=== PATIENT | female | born 1935 | race Caucasian/White ===

== ENCOUNTER 2019-09-30 16:46 | Inpatient (IN) | payer OTHER, MEDICAID ==
[~2019-09-30] VITALS: Ht 152.4 cm; Wt 44.9 kg
[2019-09-30 16:50] VITALS: BP_SYST 164
[2019-09-30] MEDS ORDERED: SUCCINYLCHOLINE CHLORIDE 20 MG/ML(QUELICIN) IVP ONE (17:15)
[2019-09-30] MEDS ORDERED: ETOMIDATE 20 MG/ 10 ML VIAL (AMIDATE) IVP ONE (17:15)
--- NOTE | 2019-09-30 17:15 | NUR ---
PATIENT TO ER #5 ISOLATION; FARMWORKER POULTRY, SAO2, ABP; IV #22 LAC FROM FACILITY D5NS 75HR; INFILTRATED AND DCED; NEW START RIGHT WRIST #24
--- NOTE | 2019-09-30 17:20 | NUR ---
ERMD EVALUATION; PREPARATIONS TO INTUBATE
--- NOTE | 2019-09-30 17:25 | NUR ---
PATIENT PRESENTS TO THE ER WITH HX OF INCREASED DYSPNEA AND DECREASED SAO2 TODAY; NO TRAUMA, NO OTHER REMARKABLE S/S
--- NOTE | 2019-09-30 17:30 | NUR ---
Pt to be intubated attempt to be given 20 ml of etomidate infiltrated. New IV started on R Wrist 24 guage. 10 mL of etomidate succesful on new IV. Followed by Succinylcholine. Rapid intubation successful.
--- NOTE | 2019-09-30 17:40 | NUR ---
RT NOTES RT NOTES Pt was intubated with 6.5 ETT secured at 23cm lipline, condensation noted on ETT and CO2 detector changed to yellow for placement. Bilateral chest rise noted. Placed pt on vent AC 14 400 100%+5. Ok by Dr Del Rosario. Sputum collected and endorsed to lab.
--- NOTE | 2019-09-30 17:43 | NUR ---
peformed central line placement, successful on Yesica haynes.
--- NOTE | 2019-09-30 18:29 | NUR ---
EKG performed at by SANDRA Tam. Physician given copy of EKG for review.
[2019-09-30] MEDS ORDERED: NACL 0.9% 1,000 ML IV ONE (18:30)
[2019-09-30] MEDS ORDERED: PIPERACILLIN/TAZO 3.375 GM in NS 50 ML IV ONE (19:15)
[2019-09-30 19:31] LABS: HEMATOCRIT 30.4 % (36-48); HEMOGLOBIN 10.1 g/dL (12.0-16.0); MEAN CORPUSCULAR HEMOGLOBIN 34 pg (27-31); MEAN CORPUSCULAR HGB CONC 33 % (32-36); MEAN CORPUSCULAR VOLUME 104 fL (79.0-98.0); PLATELET COUNT (AUTO) 120 K/uL (130-430); RED BLOOD CELL COUNT(AUTO) 2.93 MIL/uL (4.2-6.2); RED CELL DISTRIBUTION WIDTH 15.6 % (9.0-15.0); WHITE BLOOD COUNT (AUTO) 2.6 K/uL (4.8-10.8)
--- NOTE | 2019-09-30 19:48 | NUR ---
Pt's high line Triple lumen ok to use by Dr. Maher verbal ordered as confirmed by crop nutrition scientist
[2019-09-30] MEDS ORDERED: VANCOMYCIN HCL 1,000 MG in NS 250 ML IV ONE (20:00)
[2019-09-30] MEDS ORDERED: NS 500 ML IV ONE (20:00)
[2019-09-30 20:02] LABS: INR 1.5 (0.8-1.2); PROTHROMBIN TIME 15.4 SECS (9.5-12.5)
[2019-09-30] MEDS ORDERED: PIPERACILLIN/TAZOBACTAM 3.375 GM/VIAL (ZOSYN) IV ONE ×2 (20:05→23:51)
--- NOTE | 2019-09-30 20:07 | NUR ---
Pt remains in guarded condition with Vent settings unchanged, SBP above 90, and MAP of above 65
[2019-09-30] MEDS ORDERED: VANCOMYCIN HCL 1000 MG/VIAL IV ONE (20:12)
[2019-09-30 20:19] LABS: ANION GAP 12 (5-15); CALCIUM 8.2 mg/dL (8.4-11.0); CREATININE 1.51 mg/dL (0.55-1.30); GLUCOSE 102 mg/dL (70-99); POTASSIUM 3.5 mmol/L (3.5-5.1); SODIUM SERUM 158 mmol/L (136-145); UREA NITROGEN, BLOOD 28 mg/dL (8-21)
[2019-09-30 20:26] LABS: CHLORIDE 126 mmol/L (98-107)
[2019-09-30 20:30] LABS: ALANINE AMINOTRANSFERASE 21 U/L (12-78); ALBUMIN 1.6 g/dL (3.4-4.8); ASPARTATE AMINOTRANSFERASE 36 U/L (10-37); LACTATE DEHYDROGENASE 324 U/L (81-234); TOTAL BILIRUBIN 1.6 mg/dL (0.0-1.0)
[2019-09-30] MEDS ORDERED: KCL 20 mEq in D5/0.45NS 1000mL 1,000 ML IV ONE (20:45)
[2019-09-30 20:47] LABS: ATYPICAL LYMPHOCYTES % 0 % (0-0); BAND % (MANUAL) 72 % (0-6); BASOPHILS % (MANUAL) 0 % (0-2); EOSINOPHILS % (MANUAL) 0 % (0-7); LYMPHOCYTES % (MANUAL) 17 % (20-46); METAMYELOCYTES % 6 % (0-0); MONOCYTES % (MANUAL) 1 % (0-11); MYELOCYTES % 2 % (0-0)
[2019-09-30 21:08] LABS: C-REACTIVE PROTEIN QUANT 22.6 mg/dL (0-0.5)
--- NOTE | 2019-09-30 21:17 | NUR ---
DR OCHOA ADM ORDERED TO ICU, 2ND LACTIC DRAWN
[2019-09-30] MEDS: LevALBUTEROL HCL 1.25 MG/0.5 ML *CONC.* VIAL.NEB (XOPENEX CONC.) INH SCH (22:00)
[2019-09-30] MEDS ORDERED: LevALBUTEROL HCL 1.25 MG/0.5 ML *CONC.* VIAL.NEB (XOPENEX CONC.) INH PRN (22:00)
[2019-09-30] MEDS ORDERED: CLOP75TA32 PO (22:06)
[2019-09-30] MEDS ORDERED: LACT-47 PO (22:07)
[2019-09-30] MEDS ORDERED: FERR-69 PO (22:08)
[2019-09-30] MEDS ORDERED: MEGE40TA PO (22:08)
[2019-09-30] MEDS ORDERED: LACT10SO7 PO (22:08)
[2019-09-30] MEDS ORDERED: MEMA10TA PO (22:09)
[2019-09-30] MEDS ORDERED: TRAM50TA2 PO (22:10)
--- NOTE | 2019-09-30 22:15 | NUR ---
VSS REMAINS ON SAME VENT SETTINGS, SCANT URINE VIA CABRALES, DR. OCHOA ARRIVED BEDSIDE FOR PT EVAL
[2019-09-30] MEDS ORDERED: ACETAMINOPHEN 650 MG SUPP.RECT RC PRN (22:30)
[2019-09-30 23:00] VITALS: BP_SYST 94
--- NOTE | 2019-09-30 23:20 | NUR ---
Patient will be admitted to care of DR. OCHOA. Admitted to ICU unit. Will go to room ICU 4. Belongings list completed. Complete and up to date summary report printed. SBAR report to be given at bedside with opportunity for questions.
--- NOTE | 2019-09-30 23:20 | NUR ---
Transfer to ICU via ACLS protocol. Licensed nurse present. IV present no signs or symptoms of infiltration.
[2019-09-30 23:21] VITALS: BP_SYST 127
[2019-09-30 23:51] VITALS: BP_SYST 105
[2019-10-01] VITALS (30 sets, daily range): BP systolic 86–137
[2019-10-01] MEDS: PANTOPRAZOLE SODIUM 40 MG/VIAL (PROTONIX) IVP SCH ×2 (01:15→08:29)
[2019-10-01] MEDS: PIPERACILLIN/TAZO 3.375/DEX-IS 50 ML IV SCH ×4 (01:19→17:14)
[2019-10-01] MEDS ORDERED: PANTOPRAZOLE SODIUM 40 MG/VIAL (PROTONIX) ONE (01:32)
[2019-10-01] MEDS: LevALBUTEROL HCL 1.25 MG/0.5 ML *CONC.* VIAL.NEB (XOPENEX CONC.) INH SCH ×2 (02:25→07:00)
--- NOTE | 2019-10-01 05:22 | NUR ---
CONSULT DR. BASURTO SEPSIS [phone] SPOKE WITH NATANAEL
[2019-10-01 06:00] LABS: BASOPHILS % (AUTO) 0.1 % (0.0-2.0); EOSINOPHILS # (AUTO) 0.1 K/uL (0.0-0.4); EOSINOPHILS % (AUTO) 2.2 % (0.0-4.0); HEMATOCRIT 25.7 % (36-48); HEMOGLOBIN 8.4 g/dL (12.0-16.0); LYMPHOCYTES # (AUTO) 0.5 K/uL (1.0-5.5); LYMPHOCYTES % (AUTO) 13.4 % (20.5-51.5); MEAN CORPUSCULAR HEMOGLOBIN 34 pg (27-31); MEAN CORPUSCULAR HGB CONC 33 % (32-36); MEAN CORPUSCULAR VOLUME 104 fL (79.0-98.0); MONOCYTES # (AUTO) 0.1 K/uL (0.0-1.0); MONOCYTES % (AUTO) 2.6 % (1.7-9.3); NEUTROPHILS % (AUTO) 81.7 % (40.0-70.0); PLATELET COUNT (AUTO) 79 K/uL (130-430); RED BLOOD CELL COUNT(AUTO) 2.47 MIL/uL (4.2-6.2); RED CELL DISTRIBUTION WIDTH 16.1 % (9.0-15.0); WHITE BLOOD COUNT (AUTO) 3.6 K/uL (4.8-10.8)
--- NOTE | 2019-10-01 07:30 | NUR ---
Opening Note Received plan of care via sbar from endorsing nurse Max FLORES. Completed patient round.
--- NOTE | 2019-10-01 07:32 | NUR ---
RT NOTES 0732 BEFORE DOING 7AM ROUNDS/BREATHING TX/ABG, DR ORDONEZ AT BEDSIDE, MADE VENT SETTINGS CHANGES SWITCHED TO PC 20, RR14, (TARGET VT400), PEEP 5, 100% FIO2. (IF IN DISTRESS SWITCH BACK TO AC14, 400VT). SHE ORDER TO DELAY ABG AFTER 1HOUR. PT MAGDA VENT SET CHANGES. ALSO, GAVE RT VERBAL ORDER: DISCONTINUED HHN BX TX, AND DO MDI Q6 VENTOLIN INSTEAD. TITRATION ORDER 88-90% SATURATION. SANDRA FLORENTINO AWARE. WILL CONTINUE TO MONITOR PT. WILL REMIND RN/ TO MAKE WRITTEN ORDER FOR THE VENT CHANGES MADE. 0850 DID ABG, REPORTED RESULTS TO SANDRA FLORENTINO. WILL WAIT FOR ANY CHANGES. WILL CONTINUE TO MONITOR PT.
[2019-10-01 08:23] LABS: POTASSIUM 3.5 mmol/L (3.5-5.1); SODIUM SERUM 156 mmol/L (136-145)
[2019-10-01 08:24] LABS: CHLORIDE 127 mmol/L (98-107)
--- NOTE | 2019-10-01 08:30 | NUR ---
Received call from Lab and received report for Chloride of 127. Dr. Fransisco Dozier.
--- NOTE | 2019-10-01 08:42 | NUR ---
Received call from Dr. Moody and reported chloride of 127. Also reported unstable BP of 72/32. Clarified D5 1/2NS 20 MEQ K. Received orders for Levophed 4mg IV Drip and D5 1/2 NS 20 MEQ K IV 100cc/hr.
[2019-10-01 08:54] LABS: ANION GAP 9 (5-15); CALCIUM 7.6 mg/dL (8.4-11.0); GLUCOSE 140 mg/dL (70-99)
[2019-10-01 08:55] LABS: CREATININE 1.69 mg/dL (0.55-1.30); UREA NITROGEN, BLOOD 34 mg/dL (8-21)
[2019-10-01] MEDS ORDERED: KCL 20 mEq in D5/0.45NS 1000mL 1,000 ML IV SCH (09:00)
[2019-10-01] MEDS ORDERED: NACL 0.9% 1,000 ML IV SCH (09:00)
--- NOTE | 2019-10-01 09:08 | NUR ---
Nutrition Update David Scale 11 noted. Pt admitted for acute respiratory failure/PNA Diet: Jevity 1.5 at 10ml/hr, 50cc free water flush Q4h BMI: 19.4 kg/m2 RD to follow per nutrition care standards.
--- NOTE | 2019-10-01 09:42 | NUR ---
Received call back from Dr. Mcgowan. Reported ABG including PH, CO2, Bicarb, tHB, BE. Received orders to push 1 AMP Bicarb IVP once. Also was asked about BP, reported bp of 86/36 and was given orders to start levophed but not to exceed 4 mcg/min
[2019-10-01] MEDS: NOREPINEPHRINE BITARTRATE 4 MG in D5W 246 ML IV PRN (10:15)
[2019-10-01] MEDS ORDERED: SODIUM BICARBONATE 8.4% JECT 50 MEQ/50 ML SYRINGE IVP ONE (10:15)
[2019-10-01] MEDS ORDERED: SODIUM BICARBONATE 8.4% JECT 50 MEQ/50 ML SYRINGE ONE (10:23)
--- NOTE | 2019-10-01 12:00 | NUR ---
Dr. Moody at bedside. Provided update on BP and informed MD that patient is on 2 mcg/min Levophed. Received orders to completed Covid PCR test. Patient PCR test completed. Patient tolerated without complaint or complication. Specimen sent to lab.
[2019-10-01] MEDS: FAMOTIDINE PF 20 MG/2 ML VIAL IVP SCH (12:40)
--- NOTE | 2019-10-01 12:42 | NUR ---
Called Dr. Esparza with a consult, spoke with photocomposing machine operator
--- NOTE | 2019-10-01 12:55 | NUR ---
RT NOTES 1255 10/01/19 XRAY RESULTS REQ'D PULL BACK ETT 3CM, RT ADJUSTED ETT WITH SANDRA FLORENTINO AT BEDSIDE. ETT CURRENTLY PLACED AT 20CM LIP LINE. SATURATION 96%. NO DISTRESS NOTED, BILATERAL BREATH SOUNDS NOTED. WILL CONTINUE TO MONITOR PT.
[2019-10-01] MEDS ORDERED: GENTAMICIN 100 mg/50 mL NS 50 ML IV ONE (13:00)
[2019-10-01] MEDS: ALBUTEROL MDI INHALATION 8 GM INH INH SCH ×2 (13:13→20:00)
[2019-10-01 13:40] LABS: BILIRUBIN,URINE 1+ (NEGATIVE); BLOOD, URINE 1+ (NEGATIVE); CLARITY/URINE CLOUDY (CLEAR); COLOR,URINE YELLOW (YELLOW); GLUCOSE,URINE NEGATIVE (NEGATIVE); KETONES,URINE TRACE (NEGATIVE); LEUKOCYTE ESTERASE ,URINE NEGATIVE (NEGATIVE); NITRITE, URINE NEGATIVE (NEGATIVE); PROTEIN URINE 1+ (NEGATIVE)
[2019-10-01 13:50] LABS: BACTERIA,URINE FEW /HPF (None Seen); FINE GRANULAR CASTS,URINE 0-10 /LPF (None Seen); HYALINE CASTS, URINE 0-10 /LPF (None Seen); RBC,URINE 0-3 /HPF (0-3); WBC,URINE 0-3 /HPF (0-3)
[2019-10-01] MEDS: BALSAM PERU/CASTOR OIL 60 GM OINT...G. TP SCH (17:07)
[2019-10-01] MEDS: POTASSIUM CHLORIDE 30 MEQ in D5W 1,000 ML IV SCH (17:14)
--- NOTE | 2019-10-01 17:20 | NUR ---
RT NOTES 1720 pt saturating 100%, tried titrating FIO2 to 90%, pt tolerating well, now saturation at 95%, no resp distress noted. arielle mitchell notified, will continue to monitor pt.
--- NOTE | 2019-10-01 19:37 | NUR ---
Closing Note Provided plan of care via sbar to receiving SANDRA Palma. Completed patient round.
--- NOTE | 2019-10-01 20:00 | NUR ---
PATIENT WAS ACCEPTED AND ASSESS DONE THE PATIENT WAS ON VENT BREATHING 30-40 SETTING TV 400 FIO2 90% PS 22 PEEP 5 , PATIENT WAS ANXIOUS MOVING LEG NO RESTRAINT AT THIS TIME ORDER TO START DIPRIVAN DRIP , COLOR PALE , WAS ON LEVOPHED DRIP NOW OFF BP STABLE TUBE FEEDING MAINTAIN AT 30ML/HR,TOLERATE WELL, EYES CLOSED LETHARGIC TEMP LOW 96.8 2200 DIPRIVAN DRIP WAS START AT 5MCG, RASS -2 WAS MOVING LOWER LEG AT THIS , LEVOPHED DRIP IS OFF, CONTINUED TO BREATH IN THE 40, OCCASIONAL BREATHING IN 18-22 AND THE PATIENT WAS RELAXED , THIS WOULD LAST FOR 20 MIN , THEN BREATHING WOULD INCREASED
[2019-10-01] MEDS ORDERED: PROPOFOL DRIP 100 ML IV PRN (20:15)
[2019-10-01] MEDS ORDERED: ENOXAPARIN SODIUM 30 MG/0.3 ML SYRINGE SUBCUT SCH (21:00)
[2019-10-02] VITALS (36 sets, daily range): BP systolic 81–119
[2019-10-02] MEDS: PIPERACILLIN/TAZO 3.375/DEX-IS 50 ML IV SCH ×5 (00:30→23:05)
[2019-10-02] MEDS: POTASSIUM CHLORIDE 30 MEQ in D5W 1,000 ML IV SCH ×2 (01:27→06:18)
--- NOTE | 2019-10-02 02:30 | NUR ---
LEVOPHED DRIP WAS START, BP 77/52, WILL TITRATE AND DIPRIVAN DRIP WOULD ALSO INCREASED TO BE RELATED WITH LEVOPHED 0230 DIPRIVAN DRIP DOWN TO 6MCG 0300LEVOPHED DRIP INCREASED TO2 MCG AND DIPRIVAN INCREASED TO 7 MCG THE PATIENT IS MORE QUITE AND RELAX WILL LEAVE AT THIS RATE AND MONITOR THE PATIENT 0330 AM CARE WAS DONE HAD AN LARGE BM OF SOFT BROWN STOOL ,NO SKIN BREAK DOWN WAS NOTICE RESP. THPT. WAS MAKING CHANGES ON THE VENT ,VENT SETTING NOW IS A/C 14,TV 400, FIO2 70% PEEP 5 , PATIENT CONTINUED TO BREATH FASTER , STABLE 0530 NO CHANGES WITH PATIENT IS MORE RELAX, THE BREATHING THE SAME , WILL CONTINUED WITH PLAN OF CARE, STABLE
[2019-10-02 05:54] LABS: HEMOGLOBIN 7.6 g/dL (12.0-16.0); MEAN CORPUSCULAR HEMOGLOBIN 34 pg (27-31); MEAN CORPUSCULAR HGB CONC 33 % (32-36); MEAN CORPUSCULAR VOLUME 102 fL (79.0-98.0); RED BLOOD CELL COUNT(AUTO) 2.22 MIL/uL (4.2-6.2); WHITE BLOOD COUNT (AUTO) 13.1 K/uL (4.8-10.8)
[2019-10-02 05:58] LABS: HEMATOCRIT 22.8 % (36-48); RED CELL DISTRIBUTION WIDTH 15.8 % (9.0-15.0)
[2019-10-02 06:01] LABS: PLATELET COUNT (AUTO) 49 K/uL (130-430)
[2019-10-02 06:48] LABS: ANION GAP 11 (5-15); CREATININE 1.83 mg/dL (0.55-1.30); GLUCOSE 200 mg/dL (70-99); POTASSIUM 4.1 mmol/L (3.5-5.1); SODIUM SERUM 146 mmol/L (136-145); UREA NITROGEN, BLOOD 41 mg/dL (8-21)
[2019-10-02 06:52] LABS: CHLORIDE 120 mmol/L (98-107)
[2019-10-02 07:15] LABS: TOTAL IRON BIND. CAPACITY 45 ug/dL (250-450)
--- NOTE | 2019-10-02 07:20 | NUR ---
Dr. Mcgowan at bedside. Orders received to titrate diprivan off and start morphine and versed drip. Contacted Pharmacy for protocol. Received request to place communication order and pharmacy will place order.
[2019-10-02] MEDS: ALBUTEROL MDI INHALATION 8 GM INH INH SCH ×3 (07:21→20:20)
--- NOTE | 2019-10-02 07:30 | NUR ---
Opening Note Received plan of care via sbar from endorsing nurse Minerva FLORES. Completed patient round.
[2019-10-02 07:40] LABS: BAND % (MANUAL) 26 % (0-6); BASOPHILS % (MANUAL) 0 % (0-2); EOSINOPHILS % (MANUAL) 1 % (0-7); LYMPHOCYTES % (MANUAL) 10 % (20-46); METAMYELOCYTES % 2 % (0-0); MONOCYTES % (MANUAL) 3 % (0-11)
[2019-10-02] MEDS ORDERED: COMMUNICATION ORDER XX ONE (07:45)
--- NOTE | 2019-10-02 08:05 | NUR ---
Paged Dr. Mantilla paged, awaiting call back
--- NOTE | 2019-10-02 08:09 | NUR ---
Called Dr. Esparza called, spoke to Mita with the exchange
--- NOTE | 2019-10-02 08:10 | NUR ---
Dr. Mcgowan provided order for NS 1 L IV bolus over 2 hours and chest x ray to confirm E.T. tube placement.
[2019-10-02] MEDS ORDERED: NACL 0.9% 1,000 ML IV SCH (08:15)
--- NOTE | 2019-10-02 08:20 | NUR ---
Called Dr. Espazra and provide sodium and potassium and urine output of 400cc last 24 hours. Also reported PH and Bicarb from ABG. Received orders to change fluid to 1 L D5W 2 amp bicarbs at 100 cc IV and 20 mg Lasix IVP once.
[2019-10-02] MEDS ORDERED: NACL 0.9% 1,000 ML IV ONE (08:30)
[2019-10-02] MEDS ORDERED: FUROSEMIDE 20 MG/2 ML VIAL IVP ONE ×2 (08:30→12:45)
[2019-10-02] MEDS: BALSAM PERU/CASTOR OIL 60 GM OINT...G. TP SCH (09:35)
[2019-10-02] MEDS: SODIUM BICARBONATE 8.4% JECT 100 MEQ in D5W 1,000 ML IV SCH ×2 (10:00→20:22)
--- NOTE | 2019-10-02 10:00 | NUR ---
Witnessed Witnessed Alfredo RN taper Propofol to 5 mcg/kg/min.
--- NOTE | 2019-10-02 10:00 | NUR ---
Witnessed Witnessed Alfredo FLORES start Morphine @ 2mg/hr.
--- NOTE | 2019-10-02 10:00 | NUR ---
Witnessed Witnessed Alfredo FLORES start Versed @ 2mg/hr.
--- NOTE | 2019-10-02 10:20 | NUR ---
CONSULTATION PAGED/CALLED Reason for Consultation: Low Plts & H/H Person Who was Notified: Gene Consulting Physician: Dr. Minor Millinery Worker Specialty: Hemotology Ordering Physician: Dr. Mantilla
--- NOTE | 2019-10-02 10:30 | NUR ---
Witnessed Witnessed Alfredo FLORES turn Propofol off.
--- NOTE | 2019-10-02 11:10 | NUR ---
Paged Dr. Eduardo to discuss sepsis risk.
[2019-10-02] MEDS: MIDAZOLAM HCL IV PRN (11:13)
[2019-10-02] MEDS: NS IV PRN (11:13)
[2019-10-02] MEDS: MORPHINE I.V. DRIP 100 ML IV PRN (11:15)
--- NOTE | 2019-10-02 12:35 | NUR ---
WOUND EVALUATION: Wound Consult received from Dr. Mantilla. Thank you Dr. Mantilla for the consult. Patient received in a [place] Bed with an Isoflex DMITRY mattress with low air loss therapy, awake, nonverbal, nonresponsive to verbal commands. Patient is unable to turn in bed independently. David Score is a 13. Past Medical History: Dementia. Per admitting physician's assessment: Aspiration Pneumonia, Acute Respiratory Failure, Sepsis, Dehydration, Acute Kidney Injury, Anemia, Severe Malnutrition. Recent Labs: WBC 13.1, RBC 2.22, hemoglobin 7.6, hematocrit 22.8, platelets 49, sodium 146, chloride 120, BUN 41, creatinine 1.83, glucose 200, albumin 1.6, calcium 7.0, BNP 181, PT 15.4, INR 1.5, PTT 38.8. Microbiology: Blood culture results x2 in progress. MRSA screen results negative. Endotracheal sputum culture results in progress. Intrinsic factors that delay wound healing: Aspiration Pneumonia, Acute Respiratory Failure, Sepsis, Dehydration, Acute Kidney Injury, Anemia, Severe Malnutrition, Hypoalbuminemia, Hyperglycemia. Extrinsic factors that delay wound healing: Immobility. Wound Assessment: 1. Left Sacral area: Reopened scar tissue from a wound of unknown etiology, present on admission. Wound bed has 90% black scab, 10% red tissue. No odor, no drainage. Periwound intact. Surrounding tissue has dark discolored tissue and scar tissue. Wound measures 0.9 cm x 0.7 cm. Recommend: Cleanse wound with normal saline. Apply moisture barrier cream to yeison-wound. Apply Venelex ointment to wound bed. Cover with foam dressing. Perform wound care daily, and as needed for dressing soiling or dislodgement. Also recommend: Reposition patient [id number] only every hour with pillow support and off-load pressure areas with pillows for pressure re-distribution. Offload, elevate and float bilateral heels with one pillow lengthwise under each extremity at all times. Perform skin care and monitor skin integrity Q shift. Use moisture barrier cream on buttocks and other moisture susceptible areas QID and as needed for soiling. Maintain patient on a low air-loss mattress.
[2019-10-02] MEDS: FAMOTIDINE PF 20 MG/2 ML VIAL IVP SCH (13:00)
--- NOTE | 2019-10-02 13:00 | NUR ---
Witnessed Witnessed Alfredo RN titrate Morphine to 4mg/hr.
--- NOTE | 2019-10-02 13:00 | NUR ---
Dr. Moody at bedside. MD will place new orders.
[2019-10-02] MEDS ORDERED: SOD FERRIC GLUC COMPLEX/SUC 125 MG in NS 100 ML IV SCH (14:00)
--- NOTE | 2019-10-02 15:00 | NUR ---
Witnessed Witnessed Alfredo RN titrate Midazolam to 4mg/hr.
[2019-10-02] MEDS ORDERED: PHYTONADIONE 10 MG in NS 50 ML IV ONE (17:30)
--- NOTE | 2019-10-02 17:32 | NUR ---
Dietitian Recommendations * Recommend continue current TF regimen, Current TF regimen (Jevity 1.5 at 40 ml/hr) provides 1440 kcal and 61 g protein, and 730 ml H2O, meeting 100% of estimated caloric and protein needs. * Consider TF Glucerna 1.5 at 35 ml/hr when pt's BG is out of control. TF Glucerna at 35 ml/hr will provide 1440 kcal and 69 g protein, and 638 ml H2O, meeting 100% of estimated caloric and protein needs. Please see Nutrition Assessment for details. EP,RD
--- NOTE | 2019-10-02 18:30 | NUR ---
Called Dr. Mcgowan and received guidance for Morphine and Versed. Up to 10 MG/hr on Morphine and 8mg/hr on versed.
[2019-10-02] MEDS ORDERED: HYDROCORTISONE SOD SUCC 100 MG/2 ML VIAL IVP ONE (19:00)
--- NOTE | 2019-10-02 19:25 | NUR ---
Closing Note Provided plan of care to receiving nurse Kel RN.
--- NOTE | 2019-10-02 19:25 | NUR ---
Closing Note Provided plan of care to receiving nurse Kel RN.
[2019-10-02] MEDS ORDERED: VANCOMYCIN HCL 750 MG in NS 250 ML IV SCH (20:00)
--- NOTE | 2019-10-02 20:00 | NUR ---
LETHARGIC. ORALLY INTUBATED. SUCTIONED WITH SCANT AMOUNT OF THIN YELLOW MUCUS OBTAINED. ORAL CARE GIVE. OGT FEEDING WITH JEVITY 1.5 AT 40CC/HR. ON MORPHINE DRIP AT 8 MG/HR, VERSED DRIP AT 6 MG/HR, LEVOPHED DRIP AT 8 MCG/MIN.
[2019-10-02] MEDS ORDERED: PHYTONADIONE 10 MG/ML AMP ONE (20:25)
--- NOTE | 2019-10-02 22:00 | NUR ---
HS CARE. CABRALES CATH PATENT DRAINING CLOUDY CECE URINE TO GRAVITY.
[2019-10-03] VITALS (30 sets, daily range): BP systolic 82–143
--- NOTE | 2019-10-03 | NUR ---
SUCTIONED. TURNED. RESIDUAL CHECK 0. OGT FLUSHED WITH 50CC H2O.
[2019-10-03] MEDS: NOREPINEPHRINE BITARTRATE 4 MG in D5W 246 ML IV PRN ×2 (02:19→22:20)
--- NOTE | 2019-10-03 03:10 | NUR ---
BP 86/41, LEVOPHED DRIP INCREASED TO 10 MCG/MIN.
--- NOTE | 2019-10-03 04:00 | NUR ---
SUCTIONED. TURNED RESIDUAL CHECK 0. OGT FLUSHED WITH 50CC H2O.
[2019-10-03] MEDS: NS IV PRN (04:54)
[2019-10-03] MEDS: MIDAZOLAM HCL IV PRN (04:54)
--- NOTE | 2019-10-03 05:00 | NUR ---
1 SMEAR OF STOOL DEFECATED. CLEANED. KELLEY-CARE, SKIN CARE, BACK CARE, CABRALES CARE DONE. PARTIAL LINEN CHANGE. DOES NOT ASSIST WITH TURNING. MAGDA PROC WELL. LEVOPHED INCREASED TO 12 MCG/MIN.
[2019-10-03] MEDS: PIPERACILLIN/TAZO 3.375/DEX-IS 50 ML IV SCH ×3 (05:52→18:45)
[2019-10-03 05:59] LABS: HEMATOCRIT 27.7 % (36-48); MEAN CORPUSCULAR HEMOGLOBIN 34 pg (27-31); MEAN CORPUSCULAR HGB CONC 33 % (32-36); MEAN CORPUSCULAR VOLUME 104 fL (79.0-98.0); RED BLOOD CELL COUNT(AUTO) 2.68 MIL/uL (4.2-6.2); RED CELL DISTRIBUTION WIDTH 16.7 % (9.0-15.0); WHITE BLOOD COUNT (AUTO) 20.3 K/uL (4.8-10.8)
[2019-10-03 06:00] LABS: INR 1.7 (0.8-1.2); PROTHROMBIN TIME 17.3 SECS (9.5-12.5)
[2019-10-03] MEDS ORDERED: HYDROCORTISONE SOD SUCC 100 MG/2 ML VIAL IVP SCH (06:00)
--- NOTE | 2019-10-03 06:00 | NUR ---
UO GOOD. LEVO AT 12 MCG/MIN, MORPHINE AT 8 MG/HR, VERSED AT 6 MG/HR. REMAINS IN GUARDED CONDITION.
[2019-10-03 06:12] LABS: ANION GAP 2 (5-15); CHLORIDE 112 mmol/L (98-107); CREATININE 1.75 mg/dL (0.55-1.30); GLUCOSE 266 mg/dL (70-99); POTASSIUM 4.2 mmol/L (3.5-5.1); SODIUM SERUM 139 mmol/L (136-145); TOTAL BILIRUBIN 1.6 mg/dL (0.0-1.0)
[2019-10-03 06:47] LABS: PLATELET COUNT (AUTO) 29 K/uL (130-430)
[2019-10-03 07:24] LABS: ALANINE AMINOTRANSFERASE 21 U/L (12-78); ASPARTATE AMINOTRANSFERASE 38 U/L (10-37); UREA NITROGEN, BLOOD 40 mg/dL (8-21)
--- NOTE | 2019-10-03 07:30 | NUR ---
Received report and assumed care of patient. Pt on vent and comfortable on AC 14/300/50%/p5. Pt sedated with morphine drip and Versed drips. Levophed drip at [address]/SR on monitor. HOB up slightly. OGt with jevity infusing at 4o and tolerating. Tirado with small amount of yellow urine in bag. Right TLC IJ with all IV's infusing there. Pt has a foam dressing to sacral area. Pt has a dressing to left 2nd toe and wrapped with kerlix. Feet up off bed on tarun. Heels with no redness. Will continue to monitor pt.
[2019-10-03] MEDS: ALBUTEROL MDI INHALATION 8 GM INH INH SCH ×2 (07:32→18:00)
[2019-10-03 07:40] LABS: CALCIUM 6.9 mg/dL (8.4-11.0)
--- NOTE | 2019-10-03 08:10 | NUR ---
Dr. Mcgowan in to see pt. Vent changes made to AC 18 and 340 VT. Will continue to monitor. Levophed increased to 14 mcgs.
--- NOTE | 2019-10-03 08:10 | NUR ---
RT NOTE: 0808 Pt placed on AC rate of 18 and Vt of [address] Mcgowan's verbal order. RN aware. Will keep monitoring pt. Addendum: 10/03/19 at 0954 by Alicia Lowry RT Amended: Links added.
[2019-10-03] MEDS ORDERED: NOREPINEPHRINE 4 MG/4 ML VIAL IV ONE ×3 (08:19→22:30)
[2019-10-03] MEDS: MORPHINE I.V. DRIP 100 ML IV PRN (08:30)
--- NOTE | 2019-10-03 09:25 | NUR ---
Spoke with pts daughter on phone. Questions answered.
[2019-10-03] MEDS ORDERED: CALCIUM CHLORIDE 1 GM in NS 100 ML IV ONE (10:00)
--- NOTE | 2019-10-03 10:45 | NUR ---
Pt noted to be bradycardic on monitor and no pulse felt. Josef Branham called and CPR started and josef branham called. See josef branham work sheet.
--- NOTE | 2019-10-03 11:00 | NUR ---
RT Note: 1040 Responded to code yonas, refer to mark branham charting. Addendum: 10/03/19 at 1356 by Alicia Lowry RT Amended: Links added.
[2019-10-03 11:29] LABS: ATYPICAL LYMPHOCYTES % 0 % (0-0); BAND % (MANUAL) 10 % (0-6); BASOPHILS % (MANUAL) 0 % (0-2); EOSINOPHILS % (MANUAL) 1 % (0-7); LYMPHOCYTES % (MANUAL) 1 % (20-46); METAMYELOCYTES % 1 % (0-0); MONOCYTES % (MANUAL) 4 % (0-11)
[2019-10-03] MEDS: FAMOTIDINE PF 20 MG/2 ML VIAL IVP SCH (12:00)
[2019-10-03] MEDS: HYDROCORTISONE SOD SUCC 100 MG/2 ML VIAL IVP SCH ×2 (12:00→21:50)
[2019-10-03] MEDS: SODIUM BICARBONATE 8.4% JECT 100 MEQ in D5W 1,000 ML IV SCH ×2 (12:00→17:45)
[2019-10-03] MEDS: BALSAM PERU/CASTOR OIL 60 GM OINT...G. TP SCH (12:05)
[2019-10-03] MEDS ORDERED: EPINEPHrine JECT 0.1 MG/ML SYR IVP ONE ×2 (12:20→16:28)
--- NOTE | 2019-10-03 14:12 | NUR ---
CONSULTATION PAGED/CALLED Reason for Consultation: [] s/p CARDIAC ARREST Person Who was Notified: [] RICARDO Consulting Physician: [] DR MODI Membership Solicitor Specialty: [] CARDIOLOGY Ordering Physician: [] DR OCHOA
[2019-10-03] MEDS ORDERED: ALBUMIN HUMAN 25% 50 ML IV ONE (16:15)
[2019-10-03] MEDS ORDERED: NS 500 ML IV ONE (16:15)
--- NOTE | 2019-10-03 16:15 | NUR ---
Vent changed to AC 30 [address]. Dowd.
[2019-10-03] MEDS ORDERED: ATROPINE SULFATE 1 MG/10 ML SYRINGE IVP ONE (16:31)
--- NOTE | 2019-10-03 16:39 | NUR ---
Dr. Dowd here to see pt. Reviews EKG and orders left for NS bolus. He also left orders to increase the AC to 30 and done. Addendum: 10/03/19 at 1815 by Leyla Moore RN Dr Dowd here to see pt at 1615 not the time I documented it.
--- NOTE | 2019-10-03 16:50 | NUR ---
Spoke with pts daughter on the phone, Stacy, and informed her that she could visit due to pts expected passing. Dr. Dowd and warehouse distribution manager aware.
[2019-10-03 18:13] LABS: ANION GAP 13 (5-15); CALCIUM 7.5 mg/dL (8.4-11.0); CHLORIDE 108 mmol/L (98-107); CREATININE 1.94 mg/dL (0.55-1.30); GLUCOSE 362 mg/dL (70-99); POTASSIUM 3.8 mmol/L (3.5-5.1); SODIUM SERUM 138 mmol/L (136-145); UREA NITROGEN, BLOOD 41 mg/dL (8-21)
[2019-10-03 18:15] LABS: BASOPHILS % (AUTO) 0.2 % (0.0-2.0); EOSINOPHILS % (AUTO) 0.1 % (0.0-4.0); HEMATOCRIT 28.3 % (36-48); HEMOGLOBIN 8.9 g/dL (12.0-16.0); LYMPHOCYTES # (AUTO) 0.7 K/uL (1.0-5.5); LYMPHOCYTES % (AUTO) 4.9 % (20.5-51.5); MEAN CORPUSCULAR HEMOGLOBIN 34 pg (27-31); MEAN CORPUSCULAR HGB CONC 32 % (32-36); MONOCYTES # (AUTO) 1.1 K/uL (0.0-1.0); MONOCYTES % (AUTO) 7.3 % (1.7-9.3); NEUTROPHILS # (AUTO) 13.1 K/uL (1.8-7.7); NEUTROPHILS % (AUTO) 87.5 % (40.0-70.0); RED BLOOD CELL COUNT(AUTO) 2.65 MIL/uL (4.2-6.2); RED CELL DISTRIBUTION WIDTH 17.2 % (9.0-15.0)
--- NOTE | 2019-10-03 18:15 | NUR ---
Pts daughter adrien in to visit patient. Questions answered.
[2019-10-03 18:17] LABS: ALANINE AMINOTRANSFERASE 36 U/L (12-78); ALBUMIN 1.3 g/dL (3.4-4.8); ASPARTATE AMINOTRANSFERASE 77 U/L (10-37); TOTAL BILIRUBIN 1.7 mg/dL (0.0-1.0)
[2019-10-03 18:24] LABS: WHITE BLOOD COUNT (AUTO) 14.9 K/uL (4.8-10.8)
[2019-10-03 18:25] LABS: MEAN CORPUSCULAR VOLUME 107 fL (79.0-98.0); PLATELET COUNT (AUTO) 19 K/uL (130-430)
--- NOTE | 2019-10-03 19:15 | NUR ---
Report givent o oncoming staff to asume care of the patient.
--- NOTE | 2019-10-03 19:30 | NUR ---
Opening Note Received plan of care via sbar from endorsing SANDRA Mayer. Completed patient round.
--- NOTE | 2019-10-03 20:30 | NUR ---
CODE STATUS Daughter of Zhane Ling (Ryan) called requesting a change in code status. She wants her a DNR.
--- NOTE | 2019-10-03 20:31 | NUR ---
PAGED DR. OCHOA FOR ORDERS DIALED: [phone] SPOKE TO: GLENDY
--- NOTE | 2019-10-03 20:38 | NUR ---
DR DON Mantilla notified regarding the daughter's (Stacy) request of DNR code status. Orders given. Dr Mantilla gave the order for no compressions, and no defibrillation. Telephone order heard by 2 RNs.
[2019-10-03] MEDS: methylPREDNISolone SOD SUCC/PF 62.5 MG/ML VIAL IVP SCH (21:51)
--- NOTE | 2019-10-03 22:00 | NUR ---
PAGED DR. OCHOA FOR ORDERS DIALED: [phone] SPOKE TO: GLENDY
[2019-10-04] VITALS (36 sets, daily range): BP systolic 79–143
--- NOTE | 2019-10-04 00:30 | NUR ---
Called Dr. Mcgowan to report patient labored breathing and use of accessory muscles for breathing. Patient respiratory rate at 28. Also reported ABG of increased CO2 62.0 and PH of 7.213. Received vent setting change to TV 350 and AC 22.
--- NOTE | 2019-10-04 01:00 | NUR ---
Patient temperature trending down and measured via rectal at 90.6. Started ron hugger.
[2019-10-04] MEDS: PIPERACILLIN/TAZO 3.375/DEX-IS 50 ML IV SCH ×3 (01:07→11:14)
[2019-10-04] MEDS ORDERED: NOREPINEPHRINE 4 MG/4 ML VIAL IV ONE ×4 (01:12→07:53)
--- NOTE | 2019-10-04 01:30 | NUR ---
Patient HR observed at 37. Checked for pulse and pulse palpable at left carotid. Also verified using doppler with RT at bedside to also confirm. Given patient atropine 0.5 MG and heart rate at 110. Patient current vitals are 110 hr, res 30, 100% O2, 121/65.
--- NOTE | 2019-10-04 03:03 | NUR ---
PAGED DR. MODI FOR CRITICAL LABS DIALED: [phone] SPOKE TO: DIRECTOR VOICE
--- NOTE | 2019-10-04 03:10 | NUR ---
Spoke with Dr. Dowd reported troponin critical value of 1.314 and received order for PRN atropine 0.5 mg IV push for HR < 50.
--- NOTE | 2019-10-04 03:29 | NUR ---
Closing Note Provided plan of care via sbar to receiving SANDRA Biswas.
--- NOTE | 2019-10-04 03:50 | NUR ---
NURSING ASSESSMENT. PT ON A VENTILATOR, TACHYPNEIC, FEEDING VIA OGT ON HOLD, PROBATION MANAGER ATRIAL FIB, LEVOPHED DRIP AT 21 MCG/MIN, IVF D5 WATER WITH 2 AMPS OF SODIUM BICARB AT 100 ML PER HR, INFUSING THRU RIGHT IJ, BOTH ARMS SWOLLEN, FLACCID EXTREMITIES, TEMP 85.3, GAYMAR HEATING BLANKET IN USE, CABRALES CATHETER DRAINING YELLOW OUTPUT.
--- NOTE | 2019-10-04 04:45 | NUR ---
HEART RATE DOWN. CARDIAC RATE READING 41, ATROPINE 0.5 MG IVP ORDERED.
--- NOTE | 2019-10-04 04:50 | NUR ---
IV DRIPS. LEVOPHED DRIP TITRATED TO 24 MCG/MIN, BLOOD PRESSURE READING 44/21.
--- NOTE | 2019-10-04 05:05 | NUR ---
IV DRIPS. TITRATED LEVOPHED DRIP TO 30 MCG/MIN, BP 110/55. PT UNRESPONSIVE TO PHYSICAL STIMULI.
[2019-10-04] MEDS: ATROPINE SULFATE 1 MG/10 ML SYRINGE IVP PRN ×2 (05:15→07:55)
[2019-10-04] MEDS: NOREPINEPHRINE BITARTRATE 4 MG in D5W 246 ML IV PRN ×3 (05:17→15:05)
[2019-10-04] MEDS: ALBUTEROL MDI INHALATION 8 GM INH INH SCH ×3 (06:00→18:23)
[2019-10-04] MEDS: methylPREDNISolone SOD SUCC/PF 62.5 MG/ML VIAL IVP SCH ×3 (06:17→21:09)
[2019-10-04 06:51] LABS: ALANINE AMINOTRANSFERASE 47 U/L (12-78); ALBUMIN 1.3 g/dL (3.4-4.8); ANION GAP 19 (5-15); ASPARTATE AMINOTRANSFERASE 107 U/L (10-37); CALCIUM 7.6 mg/dL (8.4-11.0); CHLORIDE 99 mmol/L (98-107); CREATININE 2.15 mg/dL (0.55-1.30); POTASSIUM 3.8 mmol/L (3.5-5.1); SODIUM SERUM 133 mmol/L (136-145); TOTAL BILIRUBIN 2.7 mg/dL (0.0-1.0); UREA NITROGEN, BLOOD 45 mg/dL (8-21)
[2019-10-04 06:53] LABS: BASOPHILS # (AUTO) 0.1 K/uL (0.0-0.2); BASOPHILS % (AUTO) 0.3 % (0.0-2.0); EOSINOPHILS % (AUTO) 0.1 % (0.0-4.0); HEMATOCRIT 26.5 % (36-48); HEMOGLOBIN 8.1 g/dL (12.0-16.0); LYMPHOCYTES # (AUTO) 0.6 K/uL (1.0-5.5); LYMPHOCYTES % (AUTO) 3.2 % (20.5-51.5); MEAN CORPUSCULAR HEMOGLOBIN 34 pg (27-31); MEAN CORPUSCULAR HGB CONC 31 % (32-36); MEAN CORPUSCULAR VOLUME 109 fL (79.0-98.0); MONOCYTES # (AUTO) 0.1 K/uL (0.0-1.0); MONOCYTES % (AUTO) 0.6 % (1.7-9.3); NEUTROPHILS # (AUTO) 16.4 K/uL (1.8-7.7); RED BLOOD CELL COUNT(AUTO) 2.43 MIL/uL (4.2-6.2); RED CELL DISTRIBUTION WIDTH 17.2 % (9.0-15.0); WHITE BLOOD COUNT (AUTO) 17.1 K/uL (4.8-10.8)
--- NOTE | 2019-10-04 07:00 | NUR ---
REPORT. GIVEN TO ONCOMING NURSE, PT REMAINS ON LEVOPHED DRIP, AT 30 MCG/MIN, ATRIAL FIB ON THE MONITOR.
[2019-10-04 07:12] LABS: GLUCOSE 589 mg/dL (70-99)
[2019-10-04 07:14] LABS: PLATELET COUNT (AUTO) 11 K/uL (130-430)
[2019-10-04 07:15] LABS: NEUTROPHILS % (AUTO) 95.8 % (40.0-70.0)
--- NOTE | 2019-10-04 07:30 | NUR ---
Opening Note Patient report received from endorsing RN via SBAR
[2019-10-04] MEDS: BALSAM PERU/CASTOR OIL 60 GM OINT...G. TP SCH (08:08)
--- NOTE | 2019-10-04 08:15 | NUR ---
MD ROUND Dr. Mcgowan in to see patient, physician informed about patient labs. Physician entered orders
--- NOTE | 2019-10-04 09:00 | NUR ---
ROUND Dr. Dowd in to see patient, physician informed about patient labs. No new orders
[2019-10-04] MEDS ORDERED: D5W 1,000 ML IV PRN (09:11)
[2019-10-04] MEDS ORDERED: INSULIN NPH 100 UNITS/ML 10 ML VIAL SUBCUT SCH (09:15)
[2019-10-04] MEDS ORDERED: INSULIN LISPRO SLIDING SCALE 100 UNITS/ML VIAL (humaLOG) SUBCUT PRN (09:15)
[2019-10-04] MEDS ORDERED: SODIUM BICARBONATE 8.4% JECT 50 MEQ/50 ML SYRINGE IVP ONE (09:15)
[2019-10-04] MEDS ORDERED: GLUCOSE 15 GM GEL (in 37.5 GM TUBE) PO PRN (09:15)
[2019-10-04] MEDS ORDERED: INSULIN REGULAR, HUMAN 100 UNITS in NS 99 ML IV PRN ×2 (09:15)
[2019-10-04] MEDS ORDERED: DEXTROSE 50% JECT 50 ML DISP.SYRIN IVP PRN ×2 (09:15)
[2019-10-04] MEDS: SODIUM BICARBONATE 8.4% JECT 100 MEQ in D5W 1,000 ML IV SCH ×2 (11:00→15:45)
[2019-10-04] MEDS: FAMOTIDINE PF 20 MG/2 ML VIAL IVP SCH (11:14)
[2019-10-04] MEDS ORDERED: INSULIN REGULAR, HUMAN 100 UNITS/ML, 10 ML VIAL IVP ONE (11:15)
[2019-10-04 11:48] LABS: INR 1.7 (0.8-1.2); PROTHROMBIN TIME 16.7 SECS (9.5-12.5)
--- NOTE | 2019-10-04 13:00 | NUR ---
MD ROUND Dr. Minor in to see patient, physician entered orders
--- NOTE | 2019-10-04 13:30 | NUR ---
MD ROUND Dr. Muhammad in to see patient, physician spoke with family regarding possible Dialysis.
--- NOTE | 2019-10-04 14:00 | NUR ---
MD CALL Dr. Mcgowan informed about patient condition, no new orders
[2019-10-04] MEDS ORDERED: NOREPINEPHRINE BITARTRATE 8 MG in D5W 242 ML IV PRN (15:15)
--- NOTE | 2019-10-04 15:25 | NUR ---
PLASMA INITIATION: Consent signed per agreeing to administration of plams. Plasms has been type and crossmatched. Plasma sent from blood bank. Information on unit of plasma checked against patient wristband at bedside by two nurses. All information matches. Patient or responsible alliance party informed of potential complications associated with blood transfusion. Informed of possible transfusion reaction symptoms. Aware of need to notify nurse at once of itching, shortness of breath, flushing, feeling of impending doom, or other symptoms not previously present. Vital signs taken within 5 minutes prior to initiation of transfusion. RN will remain with patient for first 15 minutes of transfusion at which time vital signs will be re-assessed.
--- NOTE | 2019-10-04 16:00 | NUR ---
Nursing Note Patient given CHG bath, linens changed, gown changed, wound care performed. Patient repositioned
--- NOTE | 2019-10-04 17:52 | NUR ---
BT INITIATION: Consent signed agreeing to administration of platelet. Platelet has been type and crossmatched. Platelet sent from blood bank. Information on unit of blood checked against patient wristband at bedside by two nurses. All information matches. Patient or responsible constitution party informed of potential complications associated with blood transfusion. Informed of possible transfusion reaction symptoms. Aware of need to notify nurse at once of itching, shortness of breath, flushing, feeling of impending doom, or other symptoms not previously present. Vital signs taken within 5 minutes prior to initiation of transfusion. RN will remain with patient for first 15 minutes of transfusion at which time vital signs will be re-assessed.
--- NOTE | 2019-10-04 18:30 | NUR ---
MD ROUND Dr. Hermosillo in to see patient, physician entered orders
--- NOTE | 2019-10-04 19:32 | NUR ---
Closing Note Patient report given to nightshift RN via SBAR
--- NOTE | 2019-10-04 20:30 | NUR ---
WITNESS Witnessed SANDRA Bean titrate Insulin drip to 3units/hr.
[2019-10-04] MEDS: MEROPENEM 500 MG in NS 50 ML IV SCH (21:09)
--- NOTE | 2019-10-04 21:20 | NUR ---
PLASMA INITIATION: Consent signed agreeing to administration of plasma. Plasma has been type and crossmatched. Plasma sent from blood bank. Information on unit of plasma checked against patient wristband at bedside by two nurses. All information matches. Patient or responsible democrat informed of potential complications associated with blood transfusion. Informed of possible transfusion reaction symptoms. Aware of need to notify nurse at once of itching, shortness of breath, flushing, feeling of impending doom, or other symptoms not previously present. Vital signs taken within 5 minutes prior to initiation of transfusion. RN will remain with patient for first 15 minutes of transfusion at which time vital signs will be re-assessed.
--- NOTE | 2019-10-04 21:30 | NUR ---
ROUND Dr. Bach in to see patient, no new orders
--- NOTE | 2019-10-04 21:30 | NUR ---
WITNESS Witnessed SANDRA Bean titrate Insulin drip to 2units/hr.
--- NOTE | 2019-10-04 22:20 | NUR ---
WITNESS Witnessed SANDRA Bean titrate Insulin drip to 3units/hr.
--- NOTE | 2019-10-04 23:00 | NUR ---
WITNESS Witnessed SANDRA Bean titrate Insulin drip to 1.5 units/hr.
--- NOTE | 2019-10-04 23:05 | NUR ---
RT NOTES 2305 TITRATED FIO2 TO 90%, PT SATURATION 96%, NO RESP DISTRESS NOTED. RN DEONTE AWARE. WILL MONITOR PT.
--- NOTE | 2019-10-04 23:32 | NUR ---
PAGED DR. BRIDGES FOR ORDERS DIALED: [phone] SPOKE TO: NATANAEL
--- NOTE | 2019-10-04 23:45 | NUR ---
MD CALL Dr. Hermosillo informed about patient's second negative result for Covid-19. Physician okayed patient's isolation status to be changed on Contact.
[2019-10-05] VITALS (28 sets, daily range): BP systolic 87–146
--- NOTE | 2019-10-05 | NUR ---
WITNESS Witnessed SANDRA Bean titrate Insulin drip to 1units/hr.
--- NOTE | 2019-10-05 01:00 | NUR ---
Nursing Note Patient repositioned, and pulled up in bed. Oral care provided
--- NOTE | 2019-10-05 03:00 | NUR ---
WITNESS Witnessed SANDRA Bean turn Insulin drip off per protocol.
--- NOTE | 2019-10-05 04:00 | NUR ---
GLUCOSAN Glucosan frequency changed to Q 2 hours per protocol.
--- NOTE | 2019-10-05 04:27 | NUR ---
RT NOTES 0427 pt slowly desaturating 86-87%, increased FIO2 back to 100%, pt saturation goes back up to 95%. rn yoli aware, will monitor pt, will endorse changes to am RT.
--- NOTE | 2019-10-05 05:00 | NUR ---
CHANGE IN CONDITION GT feeding stopped, pt cannot tolerate changes in position. Pt can only tolerate HOB 25 degrees. BP decreases. Pupils dilated non responsive, no gag reflex present.
[2019-10-05] MEDS: NS IV PRN ×2 (05:44→11:12)
[2019-10-05] MEDS: NOREPINEPHRINE BITARTRATE IV PRN ×2 (05:44→11:12)
[2019-10-05] MEDS: methylPREDNISolone SOD SUCC/PF 62.5 MG/ML VIAL IVP SCH ×3 (06:39→22:26)
[2019-10-05] MEDS: MEROPENEM 500 MG in NS 50 ML IV SCH ×3 (06:39→22:25)
[2019-10-05 06:50] LABS: INR 1.6 (0.8-1.2); PROTHROMBIN TIME 16.3 SECS (9.5-12.5)
--- NOTE | 2019-10-05 07:30 | NUR ---
Received report to assume care of pt. Pt unresponsive to stimulus. Pt has a 6.5 ET tube taped at 23 cm lip line. Comfortable on vent settings of AC 30/380/100%/p5. Minimal secretions suctioned from ET. HOB up. Tube feeds on hold. Residual none. Lung sound with crackles and rhonchi bilaterally.O2 sats 89 %. Right IJ with levophed at 30 mcgs and IVF infusing at 100cc/hr.
[2019-10-05] MEDS: ALBUTEROL MDI INHALATION 8 GM INH INH SCH ×4 (07:35→18:00)
[2019-10-05 08:52] LABS: MEAN CORPUSCULAR HEMOGLOBIN 33 pg (27-31); WHITE BLOOD COUNT (AUTO) 24.3 K/uL (4.8-10.8)
[2019-10-05] MEDS: BALSAM PERU/CASTOR OIL 60 GM OINT...G. TP SCH (09:00)
[2019-10-05 09:15] LABS: ANION GAP 12 (5-15); CALCIUM 7.1 mg/dL (8.4-11.0); CHLORIDE 92 mmol/L (98-107); CREATININE 2.66 mg/dL (0.55-1.30); GLUCOSE 116 mg/dL (70-99); POTASSIUM 4.1 mmol/L (3.5-5.1); SODIUM SERUM 128 mmol/L (136-145); UREA NITROGEN, BLOOD 48 mg/dL (8-21)
[2019-10-05 09:16] LABS: MEAN CORPUSCULAR HGB CONC 32 % (32-36); MEAN CORPUSCULAR VOLUME 103 fL (79.0-98.0); RED CELL DISTRIBUTION WIDTH 15.9 % (9.0-15.0)
[2019-10-05 09:17] LABS: HEMOGLOBIN 6.1 g/dL (12.0-16.0); RED BLOOD CELL COUNT(AUTO) 1.83 MIL/uL (4.2-6.2)
[2019-10-05 09:18] LABS: HEMATOCRIT 18.8 % (36-48); PLATELET COUNT (AUTO) 28 K/uL (130-430)
--- NOTE | 2019-10-05 09:30 | NUR ---
Wound care done to left foot. Dime size wound to second toe with a dark brown dry center. Venelex applied and cvered with a foam dressing and kerlix. Both feet lifted off bed on pillows.
[2019-10-05 10:43] LABS: FOLATE (FOLIC ACID) <2.0 ng/mL (>3.0)
[2019-10-05] MEDS: SODIUM BICARBONATE 8.4% JECT 100 MEQ in D5W 1,000 ML IV SCH ×2 (11:13→22:29)
[2019-10-05] MEDS: FAMOTIDINE PF 20 MG/2 ML VIAL IVP SCH (11:16)
--- NOTE | 2019-10-05 11:18 | NUR ---
[facility], says unknown PDC number.
[2019-10-05 13:59] LABS: BAND % (MANUAL) 12 % (0-6); EOSINOPHILS % (MANUAL) 1 % (0-7); LYMPHOCYTES % (MANUAL) 3 % (20-46); MONOCYTES % (MANUAL) 3 % (0-11)
[2019-10-05 14:00] LABS: BASOPHILS % (MANUAL) 0 % (0-2); METAMYELOCYTES % 3 % (0-0)
[2019-10-05] MEDS ORDERED: NOREPINEPHRINE BITARTRATE 16 MG in NS 234 ML IV PRN (15:30)
--- NOTE | 2019-10-05 16:19 | NUR ---
Platelets started via central line. SR on monitor. Afebrile. Levophed at 30 mcgs. Minimal urine output. Pt remains unresponsive.
--- NOTE | 2019-10-05 17:00 | NUR ---
Pt noted to have a HR of 30-40's on the monitor. Audible doppler pulse and after about 4 minutes pts HR came up spontaneously to 110, ST. VSS. Pt remains unresponsive. Pt did not receive atropine.
--- NOTE | 2019-10-05 17:20 | NUR ---
Platelets finished infusing without problems.
--- NOTE | 2019-10-05 19:20 | NUR ---
Report given to oncoming RN to assume care.
--- NOTE | 2019-10-05 19:40 | NUR ---
Opening note, Received patient after report from dayshift nurse. vent to ETT in place tolerating settings AC 30. RIJ central line in place and patent. Patient on Levophed at 30 mcg/min, SBP 90-110. Tirado catheter in place and draining urine to gravity. patient requires close observation for changes in blood pressure. will continue to monitor.
--- NOTE | 2019-10-05 21:00 | NUR ---
patient assessed, repositioned for comfort. Continue to monitor blood pressure changes.
[2019-10-06] VITALS (10 sets, daily range): BP systolic 82–207
--- NOTE | 2019-10-06 00:40 | NUR ---
blood transfusion one unit PRBC started.
[2019-10-06] MEDS: ALBUTEROL MDI INHALATION 8 GM INH INH SCH (01:29)
--- NOTE | 2019-10-06 03:59 | NUR ---
RT NOTES 0359 CALLED CODE. 0400 UPON ARRIVAL PT HAS THE PULSE BACK ALREADY, PT ON CHEM CODE, PT ON THE VENTILATOR, NO BAGGING NEEDED. WILL MONITOR PT.
[2019-10-06] MEDS: MEROPENEM 500 MG in NS 50 ML IV SCH (06:38)
[2019-10-06] MEDS: methylPREDNISolone SOD SUCC/PF 62.5 MG/ML VIAL IVP SCH (06:38)
--- NOTE | 2019-10-06 06:58 | NUR ---
Responded to Code blue @1074 Dr. Maher ended Code @0589 Pt. Extubated.
--- NOTE | 2019-10-06 07:05 | NUR ---
Patient's heart rate deteriorated and became asystolic. After mark branham was called and Dr Del Valle from ER arrived patient did not respond to ACLS medications and was pronounced at 0705.
--- NOTE | 2019-10-06 07:10 | NUR ---
FAMILY UPDATE FAMILY UPDATED ON PT EXPIRATION AT THIS TIME. PER TI SHE NEEDS A LITTLE MORE TIME TO MAKE ARRANGEMENTS FOR A MORTUARY. HOUSE SUP MADE AWARE AND FAMILY INFORMED ARRANGEMENTS MUST BE MADE BY 1100. WILL ENDORSE TO ONCOMING SHIFT.
--- NOTE | 2019-10-06 07:17 | NUR ---
CORONERS REPORTED TO [facility] CORONERS AT THIS TIME. PER CASSIE NOT A CORONERS CASE.
--- NOTE | 2019-10-06 07:20 | NUR ---
[employer] called, spoke to Isaura. [id number] Alessandro from [employer] called to complete survey and official number was given [id number]
--- NOTE | 2019-10-06 07:37 | NUR ---
INFORMED MD'S PATIENT DR. OCHOA SPOKE TO [facility]A DIALED [phone] DR. MODI SPOKE TO SIDNEY DIALED [phone] DR. BRIDGES SPOKE TO SIDNEY DIALED [phone] DR. EDUARDO SPOKE TO H[facility]ER DIALED [phone] DR. MATTSON SPOKE TO SIDNEY DIALED [phone] DR. ORDONEZ LEFT A MESSAGE
== END 2019-10-06 07:05 | disposition expired | DRG 870 ==
LOC: SED 16:46 → SIC 20:32
PROVIDERS: ADMIT Family Medicine; ATTEND Family Medicine
PROC: 5A1955Z Respiratory Ventilation, Greater than 96 Consecutive Hours (ICD-10-PCS; principal; 2019-09-30)
PROC: 0BH17EZ Insertion of Endotracheal Airway into Trachea, Via Natural or Artificial Opening (ICD-10-PCS; 2019-09-30)
PROC: 02HV33Z Insertion of Infusion Device into Superior Vena Cava, Percutaneous Approach (ICD-10-PCS; 2019-09-30)
PROC: B548ZZA Ultrasonography of Superior Vena Cava, Guidance (ICD-10-PCS; 2019-09-30)
PROC: 30233K1 Transfusion of Nonautologous Frozen Plasma into Peripheral Vein, Percutaneous Approach (ICD-10-PCS; 2019-10-03)
PROC: 30233R1 Transfusion of Nonautologous Platelets into Peripheral Vein, Percutaneous Approach (ICD-10-PCS; 2019-10-05)
PROC: 30233N1 Transfusion of Nonautologous Red Blood Cells into Peripheral Vein, Percutaneous Approach (ICD-10-PCS; 2019-10-06)
DX: A41.51 Sepsis due to Escherichia coli [E. coli] (principal); E43 Unspecified severe protein-calorie malnutrition; J69.0 Pneumonitis due to inhalation of food and vomit; G93.41 Metabolic encephalopathy; J96.21 Acute and chronic respiratory failure with hypoxia; N17.0 Acute kidney failure with tubular necrosis; R65.21 Severe sepsis with septic shock; J15.5 Pneumonia due to Escherichia coli; D65 Disseminated intravascular coagulation [defibrination syndrome]; N39.0 Urinary tract infection, site not specified; T83.511A Infection and inflammatory reaction due to indwelling urethral catheter, initial encounter; D61.818 Other pancytopenia; E87.0 Hyperosmolality and hypernatremia; E87.2 Acidosis; Z68.1 Body mass index [BMI] 19.9 or less, adult; D63.8 Anemia in other chronic diseases classified elsewhere; E11.22 Type 2 diabetes mellitus with diabetic chronic kidney disease; E11.51 Type 2 diabetes mellitus with diabetic peripheral angiopathy without gangrene; E11.65 Type 2 diabetes mellitus with hyperglycemia; E56.1 Deficiency of vitamin K; E86.0 Dehydration; E87.8 Other disorders of electrolyte and fluid balance, not elsewhere classified; F01.50 Vascular dementia, unspecified severity, without behavioral disturbance, psychotic disturbance, mood disturbance, and anxiety; F02.80 Dementia in other diseases classified elsewhere, unspecified severity, without behavioral disturbance, psychotic disturbance, mood disturbance, and anxiety; G30.9 Alzheimer's disease, unspecified; I12.9 Hypertensive chronic kidney disease with stage 1 through stage 4 chronic kidney disease, or unspecified chronic kidney disease; I25.10 Atherosclerotic heart disease of native coronary artery without angina pectoris; I48.0 Paroxysmal atrial fibrillation; I46.9 Cardiac arrest, cause unspecified; K74.60 Unspecified cirrhosis of liver; N18.9 Chronic kidney disease, unspecified; Y84.6 Urinary catheterization as the cause of abnormal reaction of the patient, or of later complication, without mention of misadventure at the time of the procedure; F32.9 Major depressive disorder, single episode, unspecified; K72.90 Hepatic failure, unspecified without coma; D50.9 Iron deficiency anemia, unspecified; Z66 Do not resuscitate; Z20.828 Contact with and (suspected) exposure to other viral communicable diseases; I45.10 Unspecified right bundle-branch block; Z87.440 Personal history of urinary (tract) infections; Z74.01 Bed confinement status; Z79.899 Other long term (current) drug therapy
CPT/HCPCS: 36415; 36600; 71045; 80048; 80053; 81000-TC; 82607; 82728; 82746; 82803-TC; 82962; 83540-TC; 83550-TC; 83605; 83615-TC; 83735-TC; 83880; 84484; 85007; 85025; 85027; 85384-TC; 85610-TC; 85730-TC; 86140; 86710; 86886; 86900; 86901; 86920; 87040-TC; 87070-TC; 87081; 87186-TC; 87205-TC; 92950; 93005; 94002; 94003; 94640; 94664; 96365; 96368; 99291; C9113; J0171; J0330; J0461; J1580; J1650; J1720; J1815; J1940; J2185; J2270; J2543; J2704; J2916; J2930; J3370; J3430; J3480; J3490; J7030; J7040; J7050; J7060; J7612; P9021; P9034; P9046; P9059; U0002